=== PATIENT | male | born 1965 | race Hispanic/Latino ===

== ENCOUNTER 2019-06-18 16:17 | Emergency (ER) | payer BC ==
[~2019-06-18 16:17] MED LIST: HYDR12.530 PO; LISI-613 PO
== END 2019-06-18 18:27 | disposition home or self-care (01) ==
LOC: EDH 16:17
DX: M25.561 Pain in right knee (principal); I10 Essential (primary) hypertension
CPT/HCPCS: 73562

== ENCOUNTER 2020-03-31 16:36 | Emergency (ER) | payer BC ==
[2020-03-31] MEDS ORDERED: CLINDAMYCIN 600 MG/D5% WATER 50 ML IV ONE (16:48)
[2020-03-31] MEDS ORDERED: HYDROCODONE/ACETAMINOPHEN 10/325 MG TAB ONE (16:48)
[2020-03-31 17:07] LABS: BASOPHILS % (AUTO) 0.4 % (0.0-5.0); EOSINOPHILS % (AUTO) 0.6 % (0.0-8.0); HEMATOCRIT 43.9 % (42-54); LYMPHOCYTES % (AUTO) 15.3 % (21.0-51.0); MEAN CORPUSCULAR HEMOGLOBIN 30.7 pg (27.0-33.0); MEAN CORPUSCULAR HGB CONC 33.3 g/dL (32.0-36.0); MEAN CORPUSCULAR VOLUME 92.2 fL (79-99); MONOCYTES % (AUTO) 7.9 % (3.0-13.0); NEUTROPHILS % (AUTO) 75.3 % (40.0-77.0); PLATELET COUNT (AUTO) 241 K/uL (130-400); RED BLOOD CELL COUNT(AUTO) 4.76 MIL/uL (4.50-6.20); RED CELL DISTRIBUTION WIDTH 12.3 % (11.0-15.5)
[2020-03-31 17:18] LABS: CREATININE 1.2 mg/dL (0.5-1.5); POTASSIUM 3.5 mmol/L (3.5-5.1)
[2020-03-31 17:23] LABS: ALBUMIN 3.6 g/dL (3.5-5.0); BILIRUBIN,TOTAL 0.5 mg/dL (0.2-1.0); CRP QUANTITATIVE 103.7 mg/L (0.00-9.0); TOTAL PROTEIN, SERUM 8.1 g/dL (6.0-8.3)
[2020-03-31 17:46] LABS: APPEARANCE,URINE Clear (CLEAR); BILIRUBIN,URINE Negative (NEGATIVE); COLOR,URINE Yellow (YELLOW); GLUCOSE, URINE (UA) Negative (NEGATIVE); KETONES,URINE Negative (NEGATIVE); LEUKOCYTE ESTERASE ,URINE Negative (NEGATIVE); NITRATE,URINE Negative (NEGATIVE); OCCULT BLOOD,URINE Negative (NEGATIVE); PROTEIN,URINE Negative (NEGATIVE)
== END 2020-03-31 18:33 | disposition home or self-care (01) ==
LOC: EDH 16:36
DX: L03.116 Cellulitis of left lower limb (principal); E11.65 Type 2 diabetes mellitus with hyperglycemia; E66.9 Obesity, unspecified; I10 Essential (primary) hypertension; Z68.43 Body mass index [BMI] 50.0-59.9, adult; Z87.891 Personal history of nicotine dependence
CPT/HCPCS: 36415; 71045; 80053; 81003; 85025; 86140; 87040 ×2; 93971; 96365; 99285; J3490

== ENCOUNTER 2020-04-19 19:35 | Emergency (ER) | payer BC | END 2020-04-19 20:50 | disposition home or self-care (01) | LOC: EDH 19:35 | DX: L30.9 Dermatitis, unspecified (principal); I10 Essential (primary) hypertension; E11.9 Type 2 diabetes mellitus without complications; Z87.891 Personal history of nicotine dependence ==

== ENCOUNTER 2021-01-24 05:16 | Emergency (ER) | payer BC ==
[~2021-01-24] VITALS: Ht 170.2 cm; Wt 143.8 kg
[~2021-01-24 05:16] MED LIST changes: -LISI-613 PO; +LISI20TA24 PO
[2021-01-24 05:58] LABS: BASOPHILS % (AUTO) 0.3 % (0.0-5.0); EOSINOPHILS % (AUTO) 4.6 % (0.0-8.0); HEMATOCRIT 39.8 % (42-54); LYMPHOCYTES % (AUTO) 30.7 % (21.0-51.0); MEAN CORPUSCULAR HEMOGLOBIN 30.5 pg (27.0-33.0); MEAN CORPUSCULAR HGB CONC 33.7 g/dL (32.0-36.0); MEAN CORPUSCULAR VOLUME 90.7 fL (79-99); MONOCYTES % (AUTO) 10.9 % (3.0-13.0); PLATELET COUNT (AUTO) 157 K/uL (130-400); RED BLOOD CELL COUNT(AUTO) 4.39 MIL/uL (4.50-6.20); RED CELL DISTRIBUTION WIDTH 12.3 % (11.0-15.5); WHITE BLOOD COUNT (AUTO) 5.9 K/uL (4.8-10.8)
[2021-01-24] MEDS ORDERED: MECLIZINE HCL 25 MG TABLET PO ONE (06:00)
[2021-01-24 06:19] LABS: CREATININE 0.8 mg/dL (0.5-1.5); POTASSIUM 3.8 mmol/L (3.5-5.1)
[2021-01-24 06:23] LABS: ALBUMIN 3.4 g/dL (3.5-5.0); BILIRUBIN,TOTAL 0.4 mg/dL (0.2-1.0); TOTAL PROTEIN, SERUM 6.8 g/dL (6.0-8.3)
[2021-01-24] MEDS ORDERED: MECL-226 PO (06:29)
[2021-01-24 07:48] VITALS: BP 140/83
== END 2021-01-24 07:50 | disposition home or self-care (01) ==
LOC: EDH 05:16
DX: R42 Dizziness and giddiness (principal); E11.9 Type 2 diabetes mellitus without complications; I10 Essential (primary) hypertension; Z79.899 Other long term (current) drug therapy
CPT/HCPCS: 36415; 70450; 80053; 85025

== ENCOUNTER 2021-09-17 22:33 | Emergency (ER) | payer BC ==
[~2021-09-17] VITALS: Ht 170.2 cm; Wt 137.4 kg
[~2021-09-17 22:33] MED LIST changes: +MECL-226 PO
[2021-09-18 02:58] VITALS: BP 154/83
[2021-09-18] MEDS ORDERED: HYDROCODONE/ACETAMINOPHEN 10/325 MG TAB PO ONE (03:00)
[2021-09-18] MEDS ORDERED: KETOROLAC 60 MG VIAL (30MG/ML) IM ONE (03:00)
[2021-09-18] MEDS ORDERED: MELO10CA3 PO (03:09)
[2021-09-18] MEDS ORDERED: ACET1TAB97 PO (03:09)
== END 2021-09-18 03:19 | disposition home or self-care (01) ==
LOC: EDH 22:33
DX: M17.12 Unilateral primary osteoarthritis, left knee (principal); I10 Essential (primary) hypertension; Z79.1 Long term (current) use of non-steroidal anti-inflammatories (NSAID); Z79.899 Other long term (current) drug therapy
CPT/HCPCS: 73562; 96372; 99284; J1885